=== PATIENT | male | born 1960 | race Caucasian/White ===

== ENCOUNTER 2021-05-10 07:20 | Emergency (ER) | payer BC ==
[2021-05-10] MEDS ORDERED: Aspirin 81 MG Tab.Chew PO ONE (07:21)
--- NOTE | 2021-05-10 07:28 | PCM.EKG ---
#1 Interpretation EKG Date: 05/10/21 Time: 07:18 Rhythm: NSR Rate (Beats/Min): 78 [place]: Normal P-Wave: Present QRS: Normal ST-T: Normal QT: Normal Comparison: No Change (01/04/15) EKG Interpretation Comments: Sinus Rhythm
[2021-05-10] MEDS ORDERED: Albuterol/Ipratropium 3.0-0.5 MG/3 ML Neb Soln NEB ONE (07:39)
[2021-05-10 08:01] LABS: BLOOD UREA NITROGEN,BUN 13 mg/dL (7.0-18.0); CARBON DIOXIDE,CO2 26.7 mmol/L (21.0-32.0); CHLORIDE,CL 99 mmol/L (98-107); GLUCOSE RANDOM 122 mg/dL (74-106); POTASSIUM,K 4.6 mmol/L (3.5-5.1); SODIUM,NA 137 mmol/L (136-148)
--- NOTE | 2021-05-10 08:19 | CR ---
INDICATION: Chest pain. TECHNIQUE: Chest 1 views. COMPARISON: January 04, 2015. FINDINGS: Cardiovascular and mediastinum: Heart size and vasculature are normal in caliber and appearance. Lungs and pleural spaces: Lungs are clear. No sign of infiltrate or mass. No sign of pleural effusion. No pneumothorax. Bones and soft tissues: No significant findings. IMPRESSION: No acute findings and no significant changes from the prior exam. Dictated by Sagar Lopez MD @ 05/10/2021 8:16:33 AM (Electronically Signed)
--- NOTE | 2021-05-10 08:29 | PCM.EKG ---
#1 Interpretation EKG Date: 05/10/21 Time: 08:20 Rhythm: NSR Rate (Beats/Min): 77 [place]: Normal P-Wave: Present QRS: Normal ST-T: Normal QT: Normal Comparison: No Change (today) EKG Interpretation Comments: Sinus Rhythm
[2021-05-10] MEDS ORDERED: Heparin Sodium 5,000 Units/ML Vial IVPUSH ONE ×2 (08:31→09:00)
[2021-05-10] MEDS ORDERED: Heparin Sodium/0.45% NaCl 500 ML IV SCH (08:45)
[2021-05-10] MEDS ORDERED: Lactated Ringers 1,000 ML IV SCH (09:30)
--- NOTE | 2021-05-10 09:31 | EDM.PDOC ---
ED HPI GENERAL MEDICAL PROBLEM - General Chief Complaint: Chest Pain Stated Complaint: CHEST PAIN Time Seen by Provider: 05/10/21 07:26 - History of Present Illness INITIAL COMMENTS - FREE TEXT/NARRATIVE: CHIEF COMPLAINT(S): Chest pain HISTORY OF PRESENT ILLNESS: This is a 61-year-old man with a past medical history of hypertension, hyperlipidemia and prior history of CAD status post stent in 2014 who comes to the emergency department with a chief complaint of chest pain. The patient states that starting approximately 4 days ago he started to experience chest pain which she describes as central pressure rated 8 out of 10 without any radiation to back but states that there is radiation to his bilateral upper arms. He states that he does not get any diaphoresis, nausea, vomiting or shortness of breath. He states that he took 2 nitro 4 days ago and it seemed to help. He states that he felt better so he did not come into the emergency department. It has happened repeatedly daily since Sunday which is approximately 4 days ago and for the last 3 hours this morning he has had the same chest pain. He states that he currently is experiencing 0 out of 10 pain. He did not try nitroglycerin this morning but did take 325 mg of aspirin when the chest pain started. He denies any cough, shortness of breath, fever or chills. He denies any recent travel, recent surgery or prior history of DVT or PE. He denies any aggravating factors or relieving factors. REVIEW OF SYSTEMS: Constitutional: Denies fever, chills. Eyes: Denies eye pain Ears, Nose, Mouth, & Throat: Denies earache Cardiovascular: Positive for chest pressure Respiratory: Denies shortness of breath Gastrointestinal: Denies Nausea, vomiting, diarrhea, hematochezia. Genitourinary: Denies hematuria Skin:Denies a rash MSK: Denies joint pain Neurological: Denies blurred vision Psychiatric: Denies depression PAST MEDICAL HISTORY: As per history of present illness and as reviewed below otherwise noncontributory. SURGICAL HISTORY: As per history of present illness and as reviewed below otherwise noncontributory. SOCIAL HISTORY: As per history of present illness and as reviewed below otherwise noncontributory. FAMILY HISTORY: As per history of present illness and as reviewed below otherwise noncontributory. EXAMINATION OF ORGAN SYSTEMS/BODY AREAS: Constitutional: Blood pressure was 153/80, heart rate 83, respiratory rate 18 with an oxygen saturation of 97% on room air. Temperature 36.3 General: Well-appearing man who is in no acute distress Psychiatric: Appropriate mood and affect. Eyes: No scleral icterus or conjunctival erythema ENMT: Moist mucous membranes. No pharyngeal erythema Cardiovascular: Regular, rate, and rhythm. No gallops, murmurs, or rubs. Bilateral upper extremity pulses symmetric and intact. No peripheral edema. No JVD. Respiratory: [Lungs clear to auscultation bilaterally. Mild expiratory wheezing. Patient speaking in full sentences. Gastrointestinal: Soft, non- tender, non-distended. Normoactive bowel sounds Genitourinary: No suprapubic tenderness Musculoskeletal: Normal range of motion. Skin: No lesions or abrasions. Neurological: Alert, GCS 15 MEDICAL DECISION MAKING AND COURSE IN THE ED WITH INTERPRETATION/REVIEW OF DIAGNOSTIC STUDIES: This is a 61-year-old man with a past medical history of hypertension, hyperlipidemia and prior history of CAD status post stent in 2015 who comes to the emergency department with acute onset typical chest pain who is currently asymptomatic and is mildly hypertensive. We did place the patient on cardiac monitoring which did reveal sinus rhythm and pulse oximetry with good waveform was 97% on room air. Screening EKG did not reveal any acute signs of ischemia. Given the patient's history the patient will undergo a cardiac work- up. In addition we will obtain a Covid swab. Given the patient has already received aspirin no additional aspirin was provided. Differential at this time does include ACS, pneumonia, pneumothorax. Given the patient's mild expiratory wheezing we will provide the patient with a DuoNeb treatment. Laboratory: CBC is unremarkable. INR is normal at 1.0. BMP is unremarkable. Magnesium is normal at 2.1. Troponin is elevated at 0.076. Covid is negative. The radiological images were viewed by myself along with reading the report from the radiologist. Chest x-ray does not reveal any acute cardiopulmonary process. After troponin lab was elevated I did obtain a repeat EKG which was unremarkable. At this time I did discuss with patient that would like to start him on a heparin and that we would need to transfer him for further evaluation given his elevated troponin and his heart history. He was amenable to this plan. I called [facility] in [place] and they have no available beds at this time. Therefore I did call the [place] transfer center and currently there are no available beds in [facility]. They will continue to try. We were able to contact [facility] in [place] and they do have an available bed for NSTEMI. I spoke with Dr. Patino and Dr. Grewal who accepted the patient for transfer. I did discuss the results and transfer with the patient and he was amenable to this plan. At the time of my reevaluation his vitals were normal and his chest pain was resolved. Given the elevated troponin the patient will be transferred via fixed wing. DISPOSITION: The patient was transferred to [facility] in [place] in stable yet serious condition CONDITION: Serious PROCEDURES: Cardiac monitoring interpretation, pulse oximetry interpretation FINAL IMPRESSION(S)/DIAGNOSES: 1. Acute chest pain secondary to non-ST elevation MD Critical Care Procedure Note Authorized and performed by: Ramón Licea M.D. Critical Care Time: 125 minutes Due to a high probability of clinically significant, life threatening deterioration, the patient required my highest level of preparedness to intervene emergently and I personally spent this critical care time directly and personally managing the patient. This critical care time included obtaining a history, examining the patient, pulse oximetry; ordering and review of studies; arranging urgent treatment with development of a management plan; evaluation of a patients reponse to treatment; frequent assessment; and discussions with other providers. This critical care time was performed to assess and manage the high probability of imminent, life threatening deterioration that could result in multiorgan failure. It was exclusive of separate billable procedures and treating other patients. Please see MDM section and rest of the note for further information on patient assessment and treatment. Please see MDM section and rest of the note for further information on patient assessment and treatment. Ramón Licea M.D. Chest Pain Score (Numeric/FACES): 2 - Related Data Allergies Allergy/AdvReac Type Severity Reaction Status Date / Time No Known Allergies Allergy Verified 05/10/21 07:27 Home Meds: Home Meds Aspirin 325 mg PO DAILY 05/10/21 [History] Budesonide [Pulmicort] 0.25 mg IH DAILY 05/10/21 [History] Clopidogrel [Plavix] 75 mg PO DAILY 05/10/21 [History] Diltiazem HCl [Cardizem LA] 240 mg PO DAILY 05/10/21 [History] Tiotropium Wickes [Spiriva Respimat] 2.5 gm INH ONETIME 05/10/21 [History] atorvaSTATin [Lipitor] 20 mg PO BEDTIME 05/10/21 [History] lisinopriL [Lisinopril] 20 mg PO DAILY 05/10/21 [History] Past Medical History Cardiovascular History: Reports: High Cholesterol, Hypertension, MD Other Cardiovascular History: abdominal aneurysm, last checked approx May - Infectious Disease History Infectious Disease History: Reports: None Social & Family History - Family History Cardiac: Reports: MD - Tobacco Use Tobacco Use Status *Q: Current Every Day Tobacco User Years of Tobacco use: 40 Packs/Tins Daily: 1.5 - Recreational Drug Use Recreational Drug Use: No ED ROS GENERAL - Review of Systems Review Of Systems: See Below ED EXAM, GENERAL - Physical Exam Exam: See Below Course - Vital Signs Last Recorded V/S: Last Vital Signs Temp 36.3 C 05/10/21 09:13 Pulse 80 05/10/21 09:13 Resp 17 05/10/21 09:13 BP 118/72 05/10/21 09:13 Pulse Ox 95 05/10/21 09:13 - Orders/Labs/Meds Orders: Active Orders 24 hr Category Date Time Status Cardiac Monitoring [RC] . DIRECTED Care 05/10/21 07:22 Active Pulse Oximetry [RC] ASDIRECTED Care 05/10/21 07:22 Active RT Aerosol Therapy [RC] ASDIRECTED Care 05/10/21 07:39 Active PTT,PARTIAL THROMBOPLSTIN TIME [COAG] Q6H Lab 05/10/21 08:45 Ordered PTT,PARTIAL THROMBOPLSTIN TIME [COAG] Q6H Lab 05/10/21 14:45 Ordered PTT,PARTIAL THROMBOPLSTIN TIME [COAG] Q6H Lab 05/10/21 20:45 Ordered PTT,PARTIAL THROMBOPLSTIN TIME [COAG] Q6H Lab 05/11/21 02:45 Ordered PTT,PARTIAL THROMBOPLSTIN TIME [COAG] Q6H Lab 05/11/21 08:45 Ordered PTT,PARTIAL THROMBOPLSTIN TIME [COAG] Q6H Lab 05/11/21 14:45 Ordered PTT,PARTIAL THROMBOPLSTIN TIME [COAG] Q6H Lab 05/11/21 20:45 Ordered TROPONIN I [CHEM] Stat Lab 05/10/21 10:30 Ordered Heparin Sodium/0.45% NaCl [Heparin 25,000 Units in 1/2 Med 05/10/21 08:45 Active NS 500 ML] 500 ml IV TITRATE Lactated Ringers [Ringers, Lactated] 1,000 ml Med 05/10/21 09:30 Active IV ASDIRECTED Medication Orders Heparin Sodium/Sodium Chloride (Heparin 25,000 Units In 1/2 Ns 500 Ml) 500 mls @ 26.127 mls/hr IV TITRATE NAIDA; Protocol Last Admin: 05/10/21 09:09 Dose: 12 units/kg/hr, 26.127 mls/hr Documented by: LUTHER Cosigned by: SMITH Lactated Ringer's (Ringers, Lactated) 1,000 mls @ 125 mls/hr IV ASDIRECTED NAIDA Labs: Laboratory Tests 05/10/21 05/10/21 05/10/21 Range/Units 07:25 07:25 07:25 WBC 10.13 (4.0-11.0) K/uL RBC 5.30 (4.50-5.90) M/uL Hgb 16.2 (13.0-17.0) g/dL Hct 48.3 (38.0-50.0) % MCV 91.1 (80.0-98.0) fL MCH 30.6 (27.0-32.0) pg MCHC 33.5 (31.0-37.0) g/dL RDW Std Deviation 43.9 (28.0-62.0) fl RDW Coeff of [place] 13 (11.0-15.0) % Plt Count 305 (150-400) K/uL MPV 9.30 (7.40-12.00) fL Neut % (Auto) 59.1 (48.0-80.0) % Lymph % (Auto) 30.4 (16.0-40.0) % [place] % (Auto) 7.2 (0.0-15.0) % Eos % (Auto) 2.7 (0.0-7.0) % Baso % (Auto) 0.6 (0.0-1.5) % Neut # (Auto) 6.0 H (1.4-5.7) K/uL Lymph # (Auto) 3.1 H (0.6-2.4) K/uL [place] # (Auto) 0.7 (0.0-0.8) K/uL Eos # (Auto) 0.3 (0.0-0.7) K/uL Baso # (Auto) 0.1 (0.0-0.1) K/uL INR 1.00 APTT (18.6-31.3) SEC Sodium 137 (136-148) mmol/L Potassium 4.6 (3.5-5.1) mmol/L Chloride 99 (98-107) mmol/L Carbon Dioxide 26.7 (21.0-32.0) mmol/L BUN 13 (7.0-18.0) mg/dL Creatinine 1.0 (0.8-1.3) mg/dL Est Cr Clr Drug Dosing 87.30 mL/min Estimated GFR (MDRD) > 60.0 ml/min Glucose 122 H (74-106) mg/dL Calcium 9.0 (8.5-10.1) mg/dL Magnesium 2.1 (1.8-2.4) mg/dL Troponin I 0.076 H* (0.000-0.056) ng/mL SARS-CoV-2 RNA (THADDEUS) (NEGATIVE) 05/10/21 05/10/21 Range/Units 08:22 08:27 WBC (4.0-11.0) K/uL RBC (4.50-5.90) M/uL Hgb (13.0-17.0) g/dL Hct (38.0-50.0) % MCV (80.0-98.0) fL MCH (27.0-32.0) pg MCHC (31.0-37.0) g/dL RDW Std Deviation (28.0-62.0) fl RDW Coeff of [place] (11.0-15.0) % Plt Count (150-400) K/uL MPV (7.40-12.00) fL Neut % (Auto) (48.0-80.0) % Lymph % (Auto) (16.0-40.0) % [place] % (Auto) (0.0-15.0) % Eos % (Auto) (0.0-7.0) % Baso % (Auto) (0.0-1.5) % Neut # (Auto) (1.4-5.7) K/uL Lymph # (Auto) (0.6-2.4) K/uL [place] # (Auto) (0.0-0.8) K/uL Eos # (Auto) (0.0-0.7) K/uL Baso # (Auto) (0.0-0.1) K/uL INR APTT 22.3 (18.6-31.3) SEC Sodium (136-148) mmol/L Potassium (3.5-5.1) mmol/L Chloride (98-107) mmol/L Carbon Dioxide (21.0-32.0) mmol/L BUN (7.0-18.0) mg/dL Creatinine (0.8-1.3) mg/dL Est Cr Clr Drug Dosing mL/min Estimated GFR (MDRD) ml/min Glucose (74-106) mg/dL Calcium (8.5-10.1) mg/dL Magnesium (1.8-2.4) mg/dL Troponin I (0.000-0.056) ng/mL SARS-CoV-2 RNA (THADDEUS) NEGATIVE (NEGATIVE) Meds: Medications Generic Name Dose Route Start Last Admin Trade Name Freq PRN Reason Stop Dose Admin Heparin Sodium/Sodium Chloride 500 mls @ 26.127 mls/hr 05/10/21 08:45 1 09:09 Heparin 25,000 Units In 1/2 Ns 500 Ml IV 12 units/kg/hr TITRATE NAIDA 26.127 mls/hr Administration Protocol 12 UNITS/KG/HR Lactated Ringer's 1,000 mls @ 125 mls/hr 05/10/21 09:30 Ringers, Lactated IV ASDIRECTED NAIDA Discontinued Medications Generic Name Dose Route Start Last Admin Trade Name Freq PRN Reason Stop Dose Admin Albuterol/Ipratropium 3 ml 05/10/21 07:39 05/10/21 07:50 Albuterol/Ipratropium 3.0-0.5 Mg/3 Ml Neb Soln NEB 05/10/21 07:40 3 ml ONETIME ONE Administration Aspirin 324 mg 05/10/21 07:21 05/10/21 07:32 Aspirin 81 Mg Tab.Chew PO 05/10/21 07:22 Not Given ONETIME ONE Heparin Sodium (Porcine) 5,000 units 05/10/21 08:31 05/10/21 08:57 Heparin Sodium 5,000 Units/Ml Vial IVPUSH 05/10/21 08:32 Not Given .BOLUS ONE Heparin Sodium (Porcine) 4,000 units 05/10/21 09:00 05/10/21 09:07 Heparin Sodium 5,000 Units/Ml Vial IVPUSH 05/10/21 09:01 4,000 units .BOLUS ONE Administration Departure - Departure Time of Disposition: 09:30 Disposition: DC/Tfer to Acute Hospital 02 Condition: Serious Clinical Impression: NSTEMI (non-ST elevated myocardial infarction) - Discharge Information Referrals: PCP,None [Primary Care Provider] - Sepsis Event Note (ED) - Focused Exam Vital Signs: Vital Signs Temp Pulse Resp BP Pulse Ox 05/10/21 09:13 36.3 C 80 17 118/72 95 05/10/21 07:22 83 18 153/80 H 97 - My Orders Last 24 Hours: My Active Orders 05/10/21 07:22 Cardiac Monitoring [RC] . DIRECTED Pulse Oximetry [RC] ASDIRECTED 05/10/21 07:39 RT Aerosol Therapy [RC] ASDIRECTED 05/10/21 08:45 PTT,PARTIAL THROMBOPLSTIN TIME [COAG] Q6H Heparin Sodium/0.45% NaCl [Heparin 25,000 Units in 1/2 NS 500 ML] 500 ml IV TITRATE 05/10/21 09:30 Lactated Ringers [Ringers, Lactated] 1,000 ml IV ASDIRECTED 05/10/21 10:30 TROPONIN I [CHEM] Stat 05/10/21 14:45 PTT,PARTIAL THROMBOPLSTIN TIME [COAG] Q6H 05/10/21 20:45 PTT,PARTIAL THROMBOPLSTIN TIME [COAG] Q6H 05/11/21 02:45 PTT,PARTIAL THROMBOPLSTIN TIME [COAG] Q6H 05/11/21 08:45 PTT,PARTIAL THROMBOPLSTIN TIME [COAG] Q6H 05/11/21 14:45 PTT,PARTIAL THROMBOPLSTIN TIME [COAG] Q6H 05/11/21 20:45 PTT,PARTIAL THROMBOPLSTIN TIME [COAG] Q6H - Assessment/Plan Last 24 Hours: My Active Orders 05/10/21 07:22 Cardiac Monitoring [RC] . DIRECTED Pulse Oximetry [RC] ASDIRECTED 05/10/21 07:39 RT Aerosol Therapy [RC] ASDIRECTED 05/10/21 08:45 PTT,PARTIAL THROMBOPLSTIN TIME [COAG] Q6H Heparin Sodium/0.45% NaCl [Heparin 25,000 Units in 1/2 NS 500 ML] 500 ml IV TITRATE 05/10/21 09:30 Lactated Ringers [Ringers, Lactated] 1,000 ml IV ASDIRECTED 05/10/21 10:30 TROPONIN I [CHEM] Stat 05/10/21 14:45 PTT,PARTIAL THROMBOPLSTIN TIME [COAG] Q6H 05/10/21 20:45 PTT,PARTIAL THROMBOPLSTIN TIME [COAG] Q6H 05/11/21 02:45 PTT,PARTIAL THROMBOPLSTIN TIME [COAG] Q6H 05/11/21 08:45 PTT,PARTIAL THROMBOPLSTIN TIME [COAG] Q6H 05/11/21 14:45 PTT,PARTIAL THROMBOPLSTIN TIME [COAG] Q6H 05/11/21 20:45 PTT,PARTIAL THROMBOPLSTIN TIME [COAG] Q6H
[2021-05-10 09:42] VITALS: BP 134/80; PULSE 73
== END 2021-05-10 09:50 ==
LOC: MW.ED 07:20
DX: I21.4 Non-ST elevation (NSTEMI) myocardial infarction (principal); I25.10 Atherosclerotic heart disease of native coronary artery without angina pectoris; I10 Essential (primary) hypertension; E78.00 Pure hypercholesterolemia, unspecified; Z95.5 Presence of coronary angioplasty implant and graft; Z79.82 Long term (current) use of aspirin; Z79.899 Other long term (current) drug therapy; Z72.0 Tobacco use; Z20.822 Contact with and (suspected) exposure to COVID-19
CPT/HCPCS: 71045; 80048; 83735; 84484; 85025; 85610; 85730; 87635; 93005; 96365; 99285; J1644; J7120; J7620-GY; U0002

== ENCOUNTER 2021-07-03 14:49 | Emergency (ER) | payer BC ==
[2021-07-03] MEDS ORDERED: Sodium Chloride 0.9% 2.5 ML Syringe FLUSH PRN (14:55)
[2021-07-03] MEDS ORDERED: Sodium Chloride 0.9% 10 ML Syringe FLUSH PRN (14:55)
[2021-07-03] MEDS ORDERED: Sodium Chloride 0.9% 20 ML SDV IV PRN (14:55)
[2021-07-03 15:34] LABS: BLOOD UREA NITROGEN,BUN 15 mg/dL (7.0-18.0); CARBON DIOXIDE,CO2 25.8 mmol/L (21.0-32.0); CHLORIDE,CL 98 mmol/L (98-107); GLUCOSE RANDOM 106 mg/dL (74-106); POTASSIUM,K 4.5 mmol/L (3.5-5.1); SODIUM,NA 133 mmol/L (136-148)
--- NOTE | 2021-07-03 15:40 | CR ---
INDICATION: Code stroke COMPARISON: 05/10/2021 FINDINGS: An erect single view of the chest was obtained at 15 12 hours. The lungs remain clear. No focal or diffuse infiltrates are present. The heart remains normal in size. The mediastinum is normal in appearance. The osseous structures are normal in appearance for the patient`s age. IMPRESSION: Normal chest single view. Dictated by Lionel Villaseñor MD @ 07/03/2021 3:39:28 PM (Electronically Signed)
--- NOTE | 2021-07-03 15:46 | CT ---
INDICATION: Code stroke COMPARISON: None available. TECHNIQUE: CT examination of the head was performed with 2 and 5 mm thick axial and 2 mm thick coronal and sagittal sections without intravenous contrast. Images were obtained from the vertex of the skull through the skull base, and I examined the images with the brain and bone windows. Please note that all CT scans at this facility use dose modulation, iterative reconstruction, and/or weight-based dosing when appropriate to reduce radiation dose to as low as reasonably achievable. FINDINGS: : The brain is normal in appearance for the patient`s age on today`s study, with no sign of mass lesion, mass effect, hemorrhage, or edema. The ventricles and sulci are normal in appearance for the patient`s age. The visualized portions of the orbits are normal in appearance. There is mild mucosal thickening in the right maxillary sinus from mild chronic sinusitis. The rest of the visualized portions of the paranasal sinuses and mastoids are clear. The osseous structures are normal in their appearance with no sign of abnormality in the skull base or calvarium. IMPRESSION: Normal noncontrast CT of the head for the patient`s age. Please note that all CT scans at this facility use dose modulation, iterative reconstruction, and/or weight-based dosing when appropriate to reduce radiation dose to as low as reasonably achievable. Dictated by Lionel Villaseñor MD @ 07/03/2021 3:45:15 PM (Electronically Signed)
--- NOTE | 2021-07-03 15:52 | CT ---
INDICATION: Acute stroke, sudden onset left arm weakness. TECHNIQUE: CTA head with contrast bolus tracking and 3D MIP reconstruction. FINDINGS: Highly irregular plaque is noted around both carotid siphons. There is no significant intracranial stenosis. There is no large vessel occlusion. No aneurysm is identified. IMPRESSION: Irregular intracranial atherosclerotic disease. No large vessel occlusion. Please note that all CT scans at this facility use dose modulation, iterative reconstruction, and/or weight-based dosing when appropriate to reduce radiation dose to as low as reasonably achievable. Dictated by Rizwan Monroe MD @ 07/03/2021 8:19:40 PM (Electronically Signed)
--- NOTE | 2021-07-03 15:52 | EDM.PDOC ---
ED HPI GENERAL MEDICAL PROBLEM - General Chief Complaint: Neuro Symptoms/Deficits Stated Complaint: UNABLE TO USE LEFT ARM/ POSS STROKE Time Seen by Provider: 07/03/21 14:58 - History of Present Illness INITIAL COMMENTS - FREE TEXT/NARRATIVE: HISTORY AND PHYSICAL: History of present illness: This is a 61-year-old gentleman with history significant for hypertension, recent TX after transfer to [facility], history of COPD/emphysema, history of abdominal aortic aneurysm repair, history of peripheral vascular disease requiring vascular surgery intervention, who presents to the ER today secondary to weakness to his left hand since yesterday. Patient reports that he is unable to peanut picker any objects with his left hand. Patient reports that yesterday the symptoms started with pain to his left shoulder and he is scheduled himself to see a chiropractor tomorrow. Patient reports that he also had inability to move his left hand yesterday as well. Patient reports that he came to the ED today to make sure that it was not a stroke although he thought it was likely a pinched nerve. 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 He reports that he sometimes rests his left arm on the window but not for prolonged amount of time. Patient reports that he drinks occasionally but did not drink to the point of passing out at least within the last couple weeks. Patient denies any episode of prolonged pressure to his forearm or injury to his forearm. Patient denies any slurring in his speech or double vision. Patient has any facial drooping. Patient reports that he has a baseline stutter which is unchanged. Patient denies any weakness to his left leg. Patient has any double vision or blurred vision. Patient has any change in his hearing. Patient Nuys any recent chest pain or shortness of breath. Patient has abdominal pain. Patient denies any difficulty with ambulation, unsteady gait, vertigo. Patient reports that he felt weakness to his left hand isolated with minimal complaints to his left elbow or left shoulder. Patient reports that he does have some difficulty with moving his left shoulder but he believes that is more related to pain rather than weakness. Patient is on Plavix. Patient denies any drug use. Patient has any recent fevers, shakes, chills, nausea, vomiting, diarrhea, dysuria, frequency, urgency, chest pain, dull pain. Patient has any recent head trauma or head injury. Review of systems: As per history of present illness and below otherwise all systems reviewed and negative. Past medical history: As per history of present illness and as reviewed below otherwise noncontributory. Surgical history: As per history of present illness and as reviewed below otherwise noncontributory. Social history: No reported history of drug abuse. Family history: As per history of present illness and as reviewed below otherwise noncontributory. Physical exam: This patient was seen and evaluated during the 2019 SARS-CoV-2 novel coronavirus pandemic period. Community viral transmission is ongoing at time of this encounter and the emergency department is operating under pandemic response procedures. Constitutional: Patient is oriented to person, place, and time. Appears well- developed and well-nourished. No distress. HEENT: Moist mucous membranes Head: Normocephalic and atraumatic Eyes: Right eye exhibits no discharge. Left eye exhibits no discharge. No scleral icterus Neck: Normal range of motion. No tracheal deviation present. Cardiovascular: Normal rate and regular rhythm. Pulmonary: Effort normal, no respiratory distress. Abdominal: No distention Musculoskeletal: Normal range of motion Neurologic: Alert and oriented to person, place and time. Skin: [place], warm and dry. Psychiatric: Normal mood and affect. Behavior is normal. Judgment and thought content normal. Nursing note and vital signs have been reviewed Patient's ER physical exam is significant for weakness to his left wrist with difficulty with flexion and extension as well as hand grasp. Patient does have some tenderness to palpation to his mid forearm but no deformity identified. Patient has 5 out of 5 strength to his elbow with flexion extension as well as his shoulder. The remainder the patient's neurological exam was normal. 1a) Level of consciousness: 0=alert; 1=not alert but arousable by minor stimulation; 2=not alert: requires repeated stimulation to attend or is obtunded and requires strong or painful stimulation to make movements; 3=responds only with reflex motor or autonomic effects or totally unresponsive, flaccid and areflexic SCORE 0 1b) LOC questions ("what month is it?", "how old are you?"): 0=answers both correctly; 1=answers one correctly; 2=answers neither correctly SCORE 0 1c) LOC commands (command patient to "open and close your eyes. [employer]ician and release your hand.): 0=performs both correctly; 1=performs one correctly; 2=performs neither correctly SCORE 0 2) Best gaze ("follow my finger"): 0=normal; 1=partial gaze palsy; 2=forced deviation or total gaze paresis SCORE 0 3) Visual romeo (use confrontation, finger counting, or visual threat. confront upper/lower quadrants of visual field): 0=no visual loss; 1=partial hemianopsia; 2=complete hemianopsia; 3=bilateral hemianopsia SCORE 0 4) Facial palsy (by words or pantomime, encourage patient to: "Show me your teeth. Raise your eyebrows. Close your eyes."): 0=normal symmetrical movement; 1=minor paralysis (flattened nasolabial fold, asymmetry on smiling); 2=partial paralysis (lower face); 3=complete paralysis SCORE 0 5) Arm motor (alternately position patient's arms. extend each arm with palms down (90 degrees if sitting, 45 degrees if supine) - test each arm in turn and start with nonparetic arm first): 0=no drift; 1=drift (arm falls before 10 seconds); 2=some effort vs. gravity; 3=no effort vs. gravity; 4=no movement; UN (untestable)=amputation or joint fusion SCORE 1 6) Leg motor (alternately position patient's legs. extend each leg (30 degrees, always while supine) - test nonparetic leg first): 0=no drift; 1=drift (leg falls before 5 seconds); 2=some effort vs. gravity; 3= no effort vs. gravity; 4=no movement; UN=amputation or joint fusion SCORE 0 7) Limb ataxia (ask patient (eyes open) to: "touch your finger to your nose. touch your heel to your devries"): 0=absent; 1=present in one limb; 2=present in two or more limbs; UN=amputation or joint fusion SCORE 0 8) Sensory (test as many body parts as possible (arms and not hands, legs, trunk, face) for sensation using pinprick or noxious stimuli (in the obtunded or aphasic patient)): 0=normal; 1=mild to moderate sensory loss; 2=severe to total sensory loss SCORE 0 9) Best language (using pictures and a sentence list, ask patient to "describe what you see in this picture. Name the items in this picture. Read these sentences"): 0=no aphasia, 1=mild to moderate aphasia; 2=severe aphasia; 3=mute, global aphasia SCORE 0 10) Dysarthria (using a simple word list, ask patient to: "read these words" or "repeat these words"): 0=normal articulation; 1=mild to moderate dysarthria; 2=severe dysarthria; UN=intubated or other physical barrier SCORE 0 11) Extinction and inattention (sufficient information to determine these scores may have been obtained during the prior testing): 0=no abnormality; 1=visual, tactile, auditory, spatial or personal inattention; 2=profound adam-inattention or extinction to more than one modality SCORE 0 TOTAL NIHSS Score: 1 Diagnostics: CT head, CTA head and neck reveals no acute abnormalities CBC, CMP within normal limits Therapeutics: DME note: Patient with likely radial nerve palsy resulting in weakness to his left wrist. This may be secondary to an injury to his radial nerve. Patient be placed in a Velcro splint to assist with healing of any radial nerve injury. Assessment and plan: 61-year-old gentleman who presents ER today with weakness to his left hand. Is unclear whether or not this weakness is secondary to a stroke versus our night palsy. Patient does have weakness isolated to the hand/wrist. I have discussed with the patient the results of his CT scan and my concern with his history of TX in the past, AAA repair, vasculopathy to his lower extremities but I think he is high risk for stroke/TIA. At this time, the patient does not wish to be admitted to the hospital. I have discussed with him my concerns regarding the risks of strokes that are untreated and developing future strokes if not optimized. Patient reports that he understands that although his CT scan is normal that does not rule out that he did have a stroke. Patient feels comfortable that this is more of a pinched nerve rather than a stroke and does not wish to be admitted to the hospital. He accepts the risks and the possibilities of recurrent strokes, worsening his symptoms from his stroke, and disability. Patient is alert awake and orient x3. Patient has exhibited to me the capacity for medical decision-making as well as competency to make medical decisions. Patient has been able to relay back to me my concerns regarding signing out AGAINST MEDICAL ADVICE. Given the above, I will respect the patient's autonomy and allow him to sign out AGAINST MEDICAL ADVICE. Patient understand that he may return to the ED at any time for reevaluation if his symptoms should worsen or if you develop any new or concerning symptoms. Patient should otherwise follow-up with his primary care physician for reevaluation in the morning. Definitive disposition and diagnosis as appropriate pending reevaluation and review of above. left shoulder Pain Score (Numeric/FACES): 3 - Related Data Allergies Allergy/AdvReac Type Severity Reaction Status Date / Time No Known Allergies Allergy Verified 07/03/21 15:53 Home Meds: Home Meds Aspirin 325 mg PO DAILY 05/10/21 [History] Budesonide [Pulmicort] 0.25 mg IH DAILY 05/10/21 [History] Clopidogrel [Plavix] 75 mg PO DAILY 05/10/21 [History] Diltiazem HCl [Cardizem LA] 240 mg PO DAILY 05/10/21 [History] Tiotropium Comfort [Spiriva Respimat] 2.5 gm INH ONETIME 05/10/21 [History] atorvaSTATin [Lipitor] 20 mg PO BEDTIME 05/10/21 [History] lisinopriL [Lisinopril] 20 mg PO DAILY 05/10/21 [History] Past Medical History Cardiovascular History: Reports: High Cholesterol, Hypertension, [place] Other Cardiovascular History: abdominal aneurysm, last checked approx May - Infectious Disease History Infectious Disease History: Reports: None Social & Family History - Family History Cardiac: Reports: [place] ED ROS GENERAL - Review of Systems Review Of Systems: See Below ED EXAM, GENERAL - Physical Exam Exam: See Below #1 Interpretation EKG Date: 07/03/21 Time: 15:17 EKG Interpretation Comments: EKG: As interpreted by ER physician: Imelda: Nonspecific ST-T wave abnormalities Normal axis No evidence of ST elevation TX Normal sinus rhythm heart rate of 75 Course - Vital Signs Last Recorded V/S: Last Vital Signs Temp 98.2 F 07/03/21 15:15 Pulse 80 07/03/21 15:15 Resp 16 07/03/21 15:15 BP 148/79 H 07/03/21 15:15 Pulse Ox 96 07/03/21 15:15 - Orders/Labs/Meds Orders: Active Orders 24 hr Category Date Time Status Assess Neurological Status [RC] ASDIRECTED Care 07/03/21 14:55 Active Bedrest [RC] ASDIRECTED Care 07/03/21 14:55 Active Cardiac Monitoring [RC] . DIRECTED Care 07/03/21 14:55 Active Height and Weight [RC] UPON Care 07/03/21 14:55 Active Initiate Acute Stroke Protocol [RC] STAT Care 07/03/21 14:55 Active NIH Stroke Scale [RC] ASDIRECTED Care 07/03/21 14:55 Active Oxygen Therapy [RC] ASDIRECTED Care 07/03/21 14:55 Active Stroke Education, General [RC] Click to Edit Care 07/03/21 14:55 Active Vital Signs [RC] Q15M Care 07/03/21 14:55 Active DRUG SCREEN, URINE [URCHEM] Stat Lab 07/03/21 14:56 Ordered UA W/MICROSCOPIC [URIN] Stat Lab 07/03/21 14:56 Ordered Sodium Chloride 0.9% [Normal Saline] Med 07/03/21 14:55 Active 10 ml IV ASDIRECTED PRN Sodium Chloride 0.9% [Saline Flush] Med 07/03/21 14:55 Active 10 ml FLUSH ASDIRECTED PRN Sodium Chloride 0.9% [Saline Flush] Med 07/03/21 14:55 Active 2.5 ml FLUSH ASDIRECTED PRN DME for Discharge [COMM] Stat Oth 07/03/21 16:39 Ordered Peripheral IV Insertion Adult [OM.PC] Stat Oth 07/03/21 14:55 Ordered Peripheral IV Insertion Adult [OM.PC] Stat Oth 07/03/21 14:55 Ordered Medication Orders Sodium Chloride (Sodium Chloride 0.9% 10 Ml Syringe) 10 ml FLUSH ASDIRECTED PRN PRN Reason: Keep Vein Open Last Admin: 07/03/21 15:09 Dose: 10 ml Documented by: LUTHER Sodium Chloride (Sodium Chloride 0.9% 2.5 Ml Syringe) 2.5 ml FLUSH ASDIRECTED PRN PRN Reason: Keep Vein Open Last Admin: 07/03/21 15:09 Dose: 2.5 ml Documented by: LUTHER Sodium Chloride (Sodium Chloride 0.9% 20 Ml Sdv) 10 ml IV ASDIRECTED PRN PRN Reason: IV Use Last Admin: 07/03/21 15:09 Dose: 10 ml Documented by: LUTHER Labs: Laboratory Tests 07/03/21 07/03/21 07/03/21 Range/Units 14:46 14:46 14:46 WBC 8.81 (4.0-11.0) K/uL RBC 4.79 (4.50-5.90) M/uL Hgb 15.0 (13.0-17.0) g/dL Hct 43.6 (38.0-50.0) % MCV 91.0 (80.0-98.0) fL MCH 31.3 (27.0-32.0) pg MCHC 34.4 (31.0-37.0) g/dL RDW Std Deviation 46.4 (28.0-62.0) fl RDW Coeff of Juan Digeo 14 (11.0-15.0) % Plt Count 410 H (150-400) K/uL MPV 9.20 (7.40-12.00) fL Neut % (Auto) 50.4 (48.0-80.0) % Lymph % (Auto) 40.5 H (16.0-40.0) % [place] % (Auto) 7.2 (0.0-15.0) % Eos % (Auto) 1.2 (0.0-7.0) % Baso % (Auto) 0.7 (0.0-1.5) % Neut # (Auto) 4.4 (1.4-5.7) K/uL Lymph # (Auto) 3.6 H (0.6-2.4) K/uL [place] # (Auto) 0.6 (0.0-0.8) K/uL Eos # (Auto) 0.1 (0.0-0.7) K/uL Baso # (Auto) 0.1 (0.0-0.1) K/uL Nucleated RBC % 0.0 /100WBC Nucleated RBCs # 0 K/uL INR 1.00 APTT 22.9 (18.6-31.3) SEC Sodium 133 L (136-148) mmol/L Potassium 4.5 (3.5-5.1) mmol/L Chloride 98 (98-107) mmol/L Carbon Dioxide 25.8 (21.0-32.0) mmol/L BUN 15 (7.0-18.0) mg/dL Creatinine 1.0 (0.8-1.3) mg/dL Est Cr Clr Drug Dosing TNP Estimated GFR (MDRD) > 60.0 ml/min Glucose 106 (74-106) mg/dL Calcium 9.1 (8.5-10.1) mg/dL Total Bilirubin 0.5 (0.2-1.0) mg/dL AST 13 L (15-37) IU/L ALT 18 (14-63) IU/L Alkaline Phosphatase 94 (46-116) U/L Troponin I < 0.050 (0.000-0.056) ng/mL Total Protein 7.3 (6.4-8.2) g/dL Albumin 3.5 (3.4-5.0) g/dL Globulin 3.8 (2.6-4.0) g/dL Albumin/Globulin Ratio 0.9 (0.9-1.6) TSH, Ultra Sensitive 1.00 (0.36-3.74) uIU/mL Ethyl Alcohol < 3.0 mg/dL SARS-CoV-2 RNA (THADDEUS) (NEGATIVE) 07/03/21 Range/Units 15:57 WBC (4.0-11.0) K/uL RBC (4.50-5.90) M/uL Hgb (13.0-17.0) g/dL Hct (38.0-50.0) % MCV (80.0-98.0) fL MCH (27.0-32.0) pg MCHC (31.0-37.0) g/dL RDW Std Deviation (28.0-62.0) fl RDW Coeff of Juan Diego (11.0-15.0) % Plt Count (150-400) K/uL MPV (7.40-12.00) fL Neut % (Auto) (48.0-80.0) % Lymph % (Auto) (16.0-40.0) % [place] % (Auto) (0.0-15.0) % Eos % (Auto) (0.0-7.0) % Baso % (Auto) (0.0-1.5) % Neut # (Auto) (1.4-5.7) K/uL Lymph # (Auto) (0.6-2.4) K/uL [place] # (Auto) (0.0-0.8) K/uL Eos # (Auto) (0.0-0.7) K/uL Baso # (Auto) (0.0-0.1) K/uL Nucleated RBC % /100WBC Nucleated RBCs # K/uL INR APTT (18.6-31.3) SEC Sodium (136-148) mmol/L Potassium (3.5-5.1) mmol/L Chloride (98-107) mmol/L Carbon Dioxide (21.0-32.0) mmol/L BUN (7.0-18.0) mg/dL Creatinine (0.8-1.3) mg/dL Est Cr Clr Drug Dosing Estimated GFR (MDRD) ml/min Glucose (74-106) mg/dL Calcium (8.5-10.1) mg/dL Total Bilirubin (0.2-1.0) mg/dL AST (15-37) IU/L ALT (14-63) IU/L Alkaline Phosphatase (46-116) U/L Troponin I (0.000-0.056) ng/mL Total Protein (6.4-8.2) g/dL Albumin (3.4-5.0) g/dL Globulin (2.6-4.0) g/dL Albumin/Globulin Ratio (0.9-1.6) TSH, Ultra Sensitive (0.36-3.74) uIU/mL Ethyl Alcohol mg/dL SARS-CoV-2 RNA (THADDEUS) NEGATIVE (NEGATIVE) Meds: Medications Generic Name Dose Route Start Last Admin Trade Name Freq PRN Reason Stop Dose Admin Sodium Chloride 10 ml 07/03/21 14:55 07/03/21 15:09 Sodium Chloride 0.9% 10 Ml Syringe FLUSH 10 ml ASDIRECTED PRN Administration Keep Vein Open Sodium Chloride 2.5 ml 07/03/21 14:55 07/03/21 15:09 Sodium Chloride 0.9% 2.5 Ml Syringe FLUSH 2.5 ml ASDIRECTED PRN Administration Keep Vein Open Sodium Chloride 10 ml 07/03/21 14:55 07/03/21 15:09 Sodium Chloride 0.9% 20 Ml Sdv IV 10 ml ASDIRECTED PRN Administration IV Use Departure - Departure Time of Disposition: 16:34 Disposition: Against Medical Advice 07 Condition: Fair Clinical Impression: Stroke, Sunday night palsy, Left hand weakness, Wrist weakness, Left against medical advice - Discharge Information Instructions: Radial Nerve Palsy, Stroke Prevention, [id number] Forms: ED Department Discharge Additional Instructions: You were seen and evaluated in the ER today secondary concerns of weakness to your left wrist/hand. As we discussed, although your CT scan of your head and neck did not reveal any evidence of stroke, this is not definitively rule out that you were having a stroke. As we discussed, if this is a stroke, you could suffer recurrent strokes, worsening symptoms, or other issues. As we discussed, I will respect her autonomy to make medical decisions even if I disagree with him. Please know that you may return to the ER at any time if you should change her mind or if you develop any new or concerning symptoms. There is also the possibility that your symptoms could be from a radial nerve palsy called a Sunday night palsy. We will place you in a wrist splint to help with healing if that is the case. Please continue taking all your medicine especially please make sure you are taking your Plavix until you are reevaluated by your family doctor. Please make sure that you see them in the next 1 to 2 days. The following information is given to patients seen in the emergency department who are being discharged to home. This information is to outline your options for follow-up care. We provide all patients seen in our emergency department with a follow-up referral. The need for follow-up, as well as the timing and circumstances, are variable depending upon the specifics of your emergency department visit. If you don't have a primary care physician on staff, we will provide you with a referral. We always advise you to contact your personal physician following an emergency department visit to inform them of the circumstance of the visit and for follow-up with them and/or the need for any referrals to a consulting specialist. The emergency department will also refer you to a specialist when appropriate. This referral assures that you have the opportunity for follow-up care with a specialist. All of these measure are taken in an effort to provide you with optimal care, which includes your follow-up. Under all circumstances we always encourage you to contact your private physician who remains a resource for coordinating your care. When calling for follow-up care, please make the office aware that this follow-up is from your recent emergency room visit. If for any reason you are refused follow-up, please contact the [facility] Emergency Department at and asked to speak to the emergency department charge nurse. [facility] - Primary Care [address] [place] [address] [facility] [address] [place] [address] Sepsis Event Note (ED) - Focused Exam Vital Signs: Vital Signs Temp Pulse Resp BP Pulse Ox 07/03/21 15:15 98.2 F 80 16 148/79 H 96 07/03/21 14:56 83 156/95 H 95 - My Orders Last 24 Hours: My Active Orders 07/03/21 14:55 Assess Neurological Status [RC] ASDIRECTED Bedrest [RC] ASDIRECTED Cardiac Monitoring [RC] . DIRECTED Height and Weight [RC] UPON Initiate Acute Stroke Protocol [RC] STAT NIH Stroke Scale [RC] ASDIRECTED Oxygen Therapy [RC] ASDIRECTED Stroke Education, General [RC] Click to Edit Vital Signs [RC] Q15M Sodium Chloride 0.9% [Normal Saline] 10 ml IV ASDIRECTED PRN Sodium Chloride 0.9% [Saline Flush] 10 ml FLUSH ASDIRECTED PRN Sodium Chloride 0.9% [Saline Flush] 2.5 ml FLUSH ASDIRECTED PRN Peripheral IV Insertion Adult [OM.PC] Stat Peripheral IV Insertion Adult [OM.PC] Stat 07/03/21 14:56 DRUG SCREEN, URINE [URCHEM] Stat UA W/MICROSCOPIC [URIN] Stat 07/03/21 16:39 DME for Discharge [COMM] Stat - Assessment/Plan Last 24 Hours: My Active Orders 07/03/21 14:55 Assess Neurological Status [RC] ASDIRECTED Bedrest [RC] ASDIRECTED Cardiac Monitoring [RC] . DIRECTED Height and Weight [RC] UPON Initiate Acute Stroke Protocol [RC] STAT NIH Stroke Scale [RC] ASDIRECTED Oxygen Therapy [RC] ASDIRECTED Stroke Education, General [RC] Click to Edit Vital Signs [RC] Q15M Sodium Chloride 0.9% [Normal Saline] 10 ml IV ASDIRECTED PRN Sodium Chloride 0.9% [Saline Flush] 10 ml FLUSH ASDIRECTED PRN Sodium Chloride 0.9% [Saline Flush] 2.5 ml FLUSH ASDIRECTED PRN Peripheral IV Insertion Adult [OM.PC] Stat Peripheral IV Insertion Adult [OM.PC] Stat 07/03/21 14:56 DRUG SCREEN, URINE [URCHEM] Stat UA W/MICROSCOPIC [URIN] Stat 07/03/21 16:39 DME for Discharge [COMM] Stat
[2021-07-03 15:53] VITALS: BP 148/79; PULSE 80
--- NOTE | 2021-07-03 15:57 | CT ---
INDICATION: Acute stroke, sudden onset left arm weakness. TECHNIQUE: CTA neck with contrast bolus tracking and 3D MIP reconstruction. FINDINGS: Calcified atherosclerotic plaque is present in the proximal left internal carotid artery resulting in a moderate 50 percent stenosis by NASCET criteria. There is carotid atherosclerotic disease on the right without significant stenosis. There is no significant vertebral artery stenosis or dissection. IMPRESSION: Moderate proximal left ICA stenosis, 50 percent by NASCET criteria. No significant right carotid stenosis. Please note that all CT scans at this facility use dose modulation, iterative reconstruction, and/or weight-based dosing when appropriate to reduce radiation dose to as low as reasonably achievable. Dictated by Rizwan Monroe MD @ 07/03/2021 8:21:37 PM (Electronically Signed)
[2021-07-03] MEDS ORDERED: Iopamidol 755 MG/ML 500 ML Multipack Bottle IVPUSH ONE (17:37)
== END 2021-07-03 16:20 | disposition left against medical advice (07) ==
LOC: MW.ED 14:49
DX: I63.9 Cerebral infarction, unspecified (principal); G83.24 Monoplegia of upper limb affecting left nondominant side; G56.32 Lesion of radial nerve, left upper limb; I25.2 Old myocardial infarction; J43.9 Emphysema, unspecified; I10 Essential (primary) hypertension; E78.00 Pure hypercholesterolemia, unspecified; R29.701 NIHSS score 1; Z20.822 Contact with and (suspected) exposure to COVID-19; Z79.899 Other long term (current) drug therapy; Z79.82 Long term (current) use of aspirin
CPT/HCPCS: 36415; 70450; 70496; 70498; 71045; 80053; 80307; 84443; 84484; 85025; 85610; 85730; 87635; 93005; 99285; Q9967; U0002

== ENCOUNTER 2022-07-12 18:25 | Inpatient (IN) | payer BC ==
[2022-07-12] MEDS ORDERED: Sodium Chloride 0.9% 10 ML Syringe FLUSH PRN (18:33)
[2022-07-12] MEDS ORDERED: Sodium Chloride 0.9% 20 ML SDV IV PRN (18:33)
[2022-07-12] MEDS ORDERED: Sodium Chloride 0.9% 2.5 ML Syringe FLUSH PRN (18:33)
[2022-07-12] MEDS ORDERED: Sodium Chloride 0.9% 1,000 ML IV ONE ×2 (18:45→18:47)
[2022-07-12] MEDS ORDERED: Cefepime 2 GM in Sodium Chloride 0.9% 50 ML IV ONE (18:57)
[2022-07-12] MEDS ORDERED: Cefepime 50 ML ONE (19:03)
[2022-07-12] MEDS ORDERED: Cefepime 2 GM in Premix Bag 1 BAG IV STA (19:07)
[2022-07-12 19:12] LABS: CARBON DIOXIDE,CO2 29.2 mmol/L (21.0-32.0); POTASSIUM,K 4.3 mmol/L (3.5-5.1)
[2022-07-12] MEDS ORDERED: VANCOmycin 1.75 GM/350 ML 350 ML IV ONE (19:15)
[2022-07-12] MEDS ORDERED: Sodium Chloride 0.9% 500 ML IV ONE (19:49)
[2022-07-12 20:11] LABS: CORONAVIRUS COVID-19 NAA NEGATIVE (NEGATIVE); INFLUENZA A NAA NEGATIVE (NEGATIVE); INFLUENZA B NAA NEGATIVE (NEGATIVE)
[2022-07-12] MEDS ORDERED: Acetaminophen 325 MG Tab PO PRN (23:27)
[2022-07-12] MEDS ORDERED: Azithromycin 500 MG in Sodium Chloride 0.9% 250 ML IV SCH (23:30)
[2022-07-12] MEDS ORDERED: Enoxaparin 40 MG/0.4 ML Syringe SUBCUT SCH (23:30)
[2022-07-12] MEDS ORDERED: Sodium Chloride 0.9% 1,000 ML IV SCH (23:30)
[2022-07-13 06:16] LABS: POTASSIUM,K 4.2 mmol/L (3.5-5.1)
[2022-07-13] MEDS: Albuterol/Ipratropium 3.0-0.5 MG/3 ML Neb Soln NEB SCH ×2 (06:43→12:41)
[2022-07-13] MEDS ORDERED: Cefepime 2 GM in Sodium Chloride 0.9% 50 ML IV SCH (07:15)
[2022-07-13 08:52] VITALS: BP 124/63; PULSE 90
[2022-07-16 22:02] LABS: BORDETELLA PARAPERT IS1001 Not Detected (Not Detected)
== END 2022-07-13 11:45 | disposition left against medical advice (07) | DRG 137 ==
LOC: MW.ED 18:25 → MW.MS 20:38
PROVIDERS: ADMIT Internal Medicine; ATTEND Internal Medicine
DX: J69.0 Pneumonitis due to inhalation of food and vomit (principal); J96.01 Acute respiratory failure with hypoxia; I69.354 Hemiplegia and hemiparesis following cerebral infarction affecting left non-dominant side; I10 Essential (primary) hypertension; I25.10 Atherosclerotic heart disease of native coronary artery without angina pectoris; G93.40 Encephalopathy, unspecified; J44.9 Chronic obstructive pulmonary disease, unspecified; N17.9 Acute kidney failure, unspecified; Z79.82 Long term (current) use of aspirin; Z79.899 Other long term (current) drug therapy; Z79.02 Long term (current) use of antithrombotics/antiplatelets; Z20.822 Contact with and (suspected) exposure to COVID-19
CPT/HCPCS: 0240U; 36415; 70450; 70450-26; 71045; 71045-26; 80053; 81001; 83605; 83735; 85025; 85610; 85730; 87040; 87486; 87581; 87633; 87798; 93005; 94640; 96365; 96367; 99285-25; A9270-GY; J0456; J0692; J1650; J3370; J3490; J7030; J7050; J7620-GY

== ENCOUNTER 2022-07-25 14:55 | Emergency (ER) | payer BC ==
[2022-07-25] MEDS ORDERED: Sodium Chloride 0.9% 10 ML Syringe FLUSH PRN (14:59)
[2022-07-25] MEDS ORDERED: Sodium Chloride 0.9% 2.5 ML Syringe FLUSH PRN (14:59)
[2022-07-25] MEDS ORDERED: Albuterol/Ipratropium 3.0-0.5 MG/3 ML Neb Soln NEB ONE (15:00)
[2022-07-25] MEDS ORDERED: methylPREDNISolone Sodium Succinate 125 MG/2 ML SDV IVPUSH ONE (15:00)
[2022-07-25] MEDS ORDERED: Rocuronium 100 MG/10 ML MDV IVPUSH STA (15:01)
[2022-07-25] MEDS ORDERED: propofoL 100 ML ONE (15:05)
[2022-07-25] MEDS ORDERED: Propofol 200 MG/20 ML SDV ONE (15:05)
[2022-07-25] MEDS ORDERED: Propofol 200 MG/20 ML SDV IVPUSH ONE ×3 (15:19→16:21)
[2022-07-25] MEDS ORDERED: propofoL 100 ML IV SCH ×2 (15:30→17:15)
[2022-07-25] MEDS ORDERED: fentaNYL/Normal Saline 2,500 MCG in Premix Bag 1 BAG IV PRN ×2 (15:42→15:43)
[2022-07-25 15:51] LABS: BLOOD UREA NITROGEN,BUN 9 mg/dL (7.0-18.0); CARBON DIOXIDE,CO2 24.2 mmol/L (21.0-32.0); CHLORIDE,CL 99 mmol/L (98-107); GLUCOSE RANDOM 159 mg/dL (74-106); POTASSIUM,K 4.6 mmol/L (3.5-5.1); SODIUM,NA 135 mmol/L (136-148)
[2022-07-25 15:53] LABS: ESTIMATED GFR 69 mL/min (>60)
[2022-07-25] MEDS: Etomidate 2 MG/ML 20 ML SDV IVPUSH ONE ×2 (15:57→15:59)
[2022-07-25] MEDS ORDERED: Albuterol/Ipratropium 3.0-0.5 MG/3 ML Neb Soln ONE (16:20)
[2022-07-25] MEDS ORDERED: Piperacillin/Tazobactam 4.5 GM in Sodium Chloride 0.9% 100 ML IV ONE (16:24)
[2022-07-25] MEDS ORDERED: fentaNYL 100 MCG/2 ML SDV ONE (16:35)
[2022-07-25] MEDS ORDERED: Ketamine 500 mg/10 ML MDV ONE (16:39)
[2022-07-25] MEDS ORDERED: Ketamine 500 mg/10 ML MDV IV ONE ×3 (16:43→17:14)
[2022-07-25] MEDS ORDERED: fentaNYL 100 MCG/2 ML SDV IVPUSH ONE ×3 (16:44→16:48)
[2022-07-25] MEDS ORDERED: Midazolam 1 MG/ML 2 ML SDV IVPUSH ONE (17:11)
[2022-07-25 17:46] LABS: CORONAVIRUS COVID-19 NAA NEGATIVE (NEGATIVE); INFLUENZA A NAA NEGATIVE (NEGATIVE); INFLUENZA B NAA NEGATIVE (NEGATIVE); RESPIRATORY SYNCYTIAL VIR NAA NEGATIVE (NEGATIVE)
[2022-07-25 20:05] VITALS: BP 79/48; PULSE 64
== END 2022-07-25 20:00 ==
LOC: MW.ED 14:55
DX: J96.90 Respiratory failure, unspecified, unspecified whether with hypoxia or hypercapnia (principal); J44.9 Chronic obstructive pulmonary disease, unspecified; E78.00 Pure hypercholesterolemia, unspecified; I10 Essential (primary) hypertension; I25.2 Old myocardial infarction; Z79.82 Long term (current) use of aspirin; Z79.899 Other long term (current) drug therapy; Z86.73 Personal history of transient ischemic attack (TIA), and cerebral infarction without residual deficits; Z20.822 Contact with and (suspected) exposure to COVID-19
CPT/HCPCS: 0241U; 31500; 36415; 71045; 80053; 82803; 83605; 83880; 84484; 85025; 93005; 94640; 96365; 96375; 99285; J2250; J2543; J2704; J2930; J3010; J3490; J7050